=== PATIENT | female | born 2000 | race Asian ===

== ENCOUNTER 2018-04-24 04:27 | Emergency (ER) | payer SELFPAY ==
[~2018-04-24] VITALS: Ht 162.6 cm; Wt 56.8 kg
[2018-04-24 04:30] VITALS: TEMP 97.6
[2018-04-24 05:15] VITALS: BP 119/52; PULSE 90
== END 2018-04-24 05:19 | disposition home or self-care (01) ==
LOC: COL.ER 04:27
DX: S52.125A Nondisplaced fracture of head of left radius, initial encounter for closed fracture (principal); W18.30XA Fall on same level, unspecified, initial encounter; Y93.01 Activity, walking, marching and hiking; Y92.009 Unspecified place in unspecified non-institutional (private) residence as the place of occurrence of the external cause